=== PATIENT | female | born 2000 | race Caucasian/White ===

== ENCOUNTER 2018-02-16 00:05 | Emergency (ER) | payer BC ==
--- NOTE | 2018-02-16 00:16 | EDPHY ---
H & P Stated Complaint: FEELING OFF PAST FEW DAYS, DIZZY LIGHTHEADED Time Seen by Provider: 02/16/18 00:10 HPI/ROS: HPI CHIEF COMPLAINT: Lightheadedness HISTORY OF PRESENT ILLNESS: This patient very pleasant 17-year-old female she is otherwise healthy without any significant medical history she does not take any daily medications she presents emergency room with lightheadedness. She repeats for the past 3-4 days she has had intermittent lightheadedness. She describes it as feeling like she is going to pass out. She states she gets anxious with it. Additionally she reports that her palms get sweaty. It happens at random times but she states she noticed that when the lights very bright in the room and she seated eating class she gets lightheaded. She gets up leaves in goes lays down states that resolved on its own. Sometimes less than hour. She denies any chest pain or pleuritic pain, denies shortness of breath. She does endorse that sometimes she feels palpitations. Denies recent illness. Denies fever. Denies dizziness room spinning. Denies headache or focal numbness or tingling. She reports to me her last set of symptoms red noon today. It is now midnight. She does not have the symptoms but she states she got anxious about sleeping tonight want to come and be evaluated. Past Medical History: No significant medical history Past Surgical History: No significant surgical history Social History: [employer] student, denies drugs alcohol tobacco products regularly. Occasional alcohol use. Family History: Noncontributory ROS REVIEW OF SYSTEMS: A comprehensive 10 point review of systems is otherwise negative aside from elements mentioned in the history of present illness. Exam Constitutional appears well nontoxic no acute distress triage nursing summary reviewed, vital signs reviewed, awake/alert. Vital signs noted at triage. Eyes normal conjunctivae and sclera, EOMI, PERRLA. HENT normal inspection, atraumatic, moist mucus membranes, no epistaxis, neck supple/ no meningismus, no raccoon eyes. Respiratory clear to auscultation bilaterally, normal breath sounds, no respiratory distress, no wheezing. Cardiovascular rate normal, regular rhythm, no murmur, no edema, distal pulses normal. Gastrointestinal soft, non-tender, no rebound, no guarding, normal bowel sounds, no distension, no pulsatile mass. Genitourinary no CVA tenderness. Musculoskeletal no midline vertebral tenderness, full range of motion, no calf swelling, no tenderness of extremities, no meningismus, good pulses, neurovascularly intact. Skin pink, warm, & dry, no rash, skin atraumatic. Neurologic awake, alert and oriented x 3, AAOx3, moves all 4 extremities equally, motor intact, sensory intact, CN II-XII intact, normal cerebellar, normal vision, normal speech. Psychiatric normal mood/affect. Heme/Lymph/Immune no lymphadenopathy. Differential Diagnosis: Includes but is not limited to in a particular order, electrolyte disturbance, cardiac arrhythmia, thyroid disease, doubt acute coronary syndrome, doubt pulmonary embolism, doubt infection. Medical Decision Making: Plan for this patient IV establishment full cardiac monitor technician obtain EKG, blood work, electrolytes, TSH, chest x-ray and re-evaluate. For workup is unremarkable here in emergency room. Will refer to Cardiology for outpatient Holter monitor. Additionally recommend follow-up if she develops worsening symptoms including worsening palpitation, syncope, chest pain, shortness of breath she should return emergency room she understands. Re-evaluation: EKG interpretation by me on record in [employer] system. Impression time of EKG 0029 sinus rhythm rate of 79 no signs of cardiac arrhythmia no signs of acute ischemia. Intervals are appropriate. No signs of WPW or [place]. 0136: Patient's extensive workup here in emergency room for palpitations unremarkable she has been on a cardiac monitor technician has been no signs of cardiac arrhythmia. Patient's EKG is nonischemic without any signs of WPW or [place] or cardiac arrhythmia. Her electrolytes, TSH, troponin, D-dimer, blood work and chest x-ray are unremarkable. It is unclear if she is having anxiety/panic attacks for a cardiac arrhythmia. I do recommend she follows up with Cardiology outpatient for Holter monitoring. I have given her referral. Additionally return precautions were discussed with her she understands return emergency room if develops chest pain, shortness of breath, lightheadedness, dizziness or passing out. Additionally she understands drink lots of fluids stay well hydrated refrain from drinking alcohol. Follow up with Cardiology. Return if worse. Source: Patient - Personal History LMP (Females 10-55): Now Current Tetanus/Diphtheria Vaccine: Yes Current Tetanus Diphtheria and Acellular Pertussis (TDAP): Yes - Medical/Surgical History Hx Asthma: No Hx Chronic Respiratory Disease: No Hx Diabetes: No Hx Cardiac Disease: No Hx Renal Disease: No Hx Cirrhosis: No Hx Alcoholism: No Hx HIV/AIDS: No Hx Splenectomy or Spleen Trauma: No Other PMH: DENIES - Social History Smoking Status: Never smoked Constitutional: Initial Vital Signs Temperature (C) 36.5 C 02/16/18 00:08 Heart Rate 86 02/16/18 00:08 Respiratory Rate 18 02/16/18 00:08 Blood Pressure 111/74 02/16/18 00:08 O2 Sat (%) 100 02/16/18 00:08 O2 Delivery Mode Room Air Allergies/Adverse Reactions: Cephalosporins Allergy (Verified 02/16/18 00:11) Home Medications: Medication Instructions Recorded NK [No Known Home Meds] 02/16/18 Medical Decision Making - Data Points Laboratory Results: Laboratory Results 02/16/18 00:05 02/16/18 00:25 02/16/18 02/16/18 02/16/18 00:25 00:25 00:25 WBC RBC Hgb Hct MCV MCH MCHC RDW Plt Count MPV Neut % (Auto) Lymph % (Auto) [place] % (Auto) Eos % (Auto) Baso % (Auto) Nucleat RBC Rel Count Absolute Neuts (auto) Absolute Lymphs (auto) Absolute Monos (auto) Absolute Eos (auto) Absolute Basos (auto) Absolute Nucleated RBC Immature Gran % Immature Gran # D-Dimer 0.27 ug/mLFEU ug/mLFEU (0.00-0.50) Sodium 143 mEq/L mEq/L (135-145) Potassium 4.0 mEq/L mEq/L (3.5-5.2) Chloride 106 mEq/L mEq/L (97-110) Carbon Dioxide 21 mEq/l L mEq/l (22-31) Anion Gap 16 mEq/L mEq/L (8-16) BUN 13 mg/dL mg/dL (7-23) Creatinine 0.8 mg/dL mg/dL (0.6-1.0) Estimated GFR > 60 Glucose 81 mg/dL mg/dL (70-100) Calcium 9.7 mg/dL mg/dL (8.5-10.4) Magnesium 1.8 mg/dL mg/dL (1.6-2.3) Total Bilirubin 0.9 mg/dL mg/dL (0.1-1.4) Conjugated Bilirubin 0.4 mg/dL mg/dL (0.0-0.5) Unconjugated Bilirubin 0.5 mg/dL mg/dL (0.0-1.1) AST 28 IU/L IU/L (14-46) ALT 28 IU/L IU/L (9-52) Alkaline Phosphatase 79 IU/L IU/L (38-126) Creatine Kinase 112 IU/L IU/L (0-156) CK-MB (CK-2) Fraction 0.69 ng/mL ng/mL (0.00-3.19) Troponin I < 0.012 ng/mL ng/mL (0.000-0.034) NT-Pro-B Natriuret Pep 13 pg/mL pg/mL (0-125) Total Protein 8.1 g/dL g/dL (6.3-8.2) Albumin 4.8 g/dL g/dL (3.5-5.0) TSH 1.690 uIU/mL uIU/mL (0.465-4.680) Beta HCG, Qual NEGATIVE 02/16/18 00:05 WBC 8.90 10^3/uL 10^3/uL (3.80-9.50) RBC 4.82 10^6/uL 10^6/uL (4.18-5.33) Hgb 15.2 g/dL g/dL (12.6-16.3) Hct 42.8 % % (38.0-47.0) MCV 88.8 fL fL (81.5-99.8) MCH 31.5 pg pg (27.9-34.1) MCHC 35.5 g/dL g/dL (32.4-36.7) RDW 12.2 % % (11.5-15.2) Plt Count 286 10^3/uL 10^3/uL (150-400) MPV 9.4 fL fL (8.7-11.7) Neut % (Auto) 42.2 % % (39.3-74.2) Lymph % (Auto) 44.2 % % (15.0-45.0) [place] % (Auto) 10.2 % % (4.5-13.0) Eos % (Auto) 2.4 % % (0.6-7.6) Baso % (Auto) 0.8 % % (0.3-1.7) Nucleat RBC Rel Count 0.0 % % (0.0-0.2) Absolute Neuts (auto) 3.76 10^3/uL 10^3/uL (1.70-6.50) Absolute Lymphs (auto) 3.93 10^3/uL H 10^3/uL (1.00-3.00) Absolute Monos (auto) 0.91 10^3/uL H 10^3/uL (0.30-0.80) Absolute Eos (auto) 0.21 10^3/uL 10^3/uL (0.03-0.40) Absolute Basos (auto) 0.07 10^3/uL 10^3/uL (0.02-0.10) Absolute Nucleated RBC 0.00 10^3/uL 10^3/uL (0-0.01) Immature Gran % 0.2 % % (0.0-1.1) Immature Gran # 0.02 10^3/uL 10^3/uL (0.00-0.10) D-Dimer Sodium Potassium Chloride Carbon Dioxide Anion Gap BUN Creatinine Estimated GFR Glucose Calcium Magnesium Total Bilirubin Conjugated Bilirubin Unconjugated Bilirubin AST ALT Alkaline Phosphatase Creatine Kinase CK-MB (CK-2) Fraction Troponin I NT-Pro-B Natriuret Pep Total Protein Albumin TSH Beta HCG, Qual Medications Given: Discontinued Medications Sodium Chloride (Ns) 1,000 mls @ 0 mls/hr IV EDNOW ONE; Wide Open PRN Reason: Protocol Stop: 02/16/18 00:22 Last Admin: 02/16/18 00:32 Dose: 1,000 mls Departure - Departure Disposition: Home, Routine, Self-Care Clinical Impression: Palpitations Condition: Good Instructions: Heart Palpitations (ED) Additional Instructions: 1. Return emergency room if develops worsening symptoms includes chest pain, shortness of breath, passing out, severe palpitations. 2. Stay well-hydrated. Do not drink alcohol. 3. Follow up with Cardiology for Holter monitor. Please call their for an appointment tomorrow. Referrals: NONE *PRIMARY CARE P,. [Primary Care Provider] - As per Instructions Basilio Murrieta MD [Medical Doctor] - As per Instructions
[2018-02-16] MEDS ORDERED: NS 1,000 ML IV ONE (00:21)
--- NOTE | 2018-02-16 00:31 | CPEKG ---
Heart Rate: 79 RR Interval: 759 P-R Interval: 132 QRSD Interval: 76 QT Interval: 380 QTC Interval: 436 P [place]: 58 QRS [place]: 71 T Wave [place]: 25 EKG Severity - NORMAL ECG - EKG Impression: SINUS RHYTHM Electronically Signed By: Femi Leyva 21-Feb-2018 15:34:42
[2018-02-16 00:38] LABS: PLATELET COUNT 286 10^3/uL (150-400)
[2018-02-16 00:45] LABS: CREATINE KINASE 112 IU/L (0-156)
[2018-02-16 01:43] VITALS: BP 107/75; PULSE 71; RESP 16; TEMP 98.2; O2SAT 97
== END 2018-02-16 01:43 | disposition home or self-care (01) ==
DX: R00.2 Palpitations (principal); E86.9 Volume depletion, unspecified